=== PATIENT | female | born 1970 | race Two or more races ===

== ENCOUNTER 2020-01-11 17:01 | Emergency (ER) | payer OTHER ==
[~2020-01-11] VITALS: Ht 157.5 cm; Wt 56.7 kg
== END 2020-01-11 23:47 | disposition home or self-care (01) ==
LOC: ER 17:01
DX: N20.0 Calculus of kidney (principal)

== ENCOUNTER 2020-01-16 06:00 | Day surgery (SDC) | payer OTHER | END 2020-01-16 13:40 | disposition home or self-care (01) | LOC: CIR.AMB 06:00 | PROVIDERS: ATTEND Urology | DX: N20.1 Calculus of ureter (principal) ==

== ENCOUNTER 2020-01-28 12:55 | Emergency (ER) | payer OTHER ==
[~2020-01-28] VITALS: Ht 160 cm; Wt 56.7 kg
[2020-01-28] MEDS ORDERED: DUI500 PO (13:58)
[2020-01-28] MEDS ORDERED: KETO10TA2 PO (13:58)
[2020-01-28] MEDS ORDERED: MUPIROCIN15 GM TOP (14:04)
== END 2020-01-28 14:14 | disposition home or self-care (01) ==
LOC: ER 12:55
DX: Q52.4 Other congenital malformations of vagina (principal); R10.2 Pelvic and perineal pain

== ENCOUNTER 2020-04-30 08:20 | Outpatient (CLI) | payer OTHER ==
[~2020-04-30 08:20] MED LIST: DUI500 PO; KETO10TA2 PO; MUPIROCIN15 GM TOP
== END 2020-04-30 08:28 | disposition home or self-care (01) ==
LOC: SONOGRAMA 08:20 → MAMO-SONO 08:45
PROVIDERS: ATTEND Urology
DX: N20.0 Calculus of kidney (principal)

== ENCOUNTER 2020-04-30 10:00 | Outpatient (CLI) | payer OTHER | END 2020-04-30 10:09 | disposition home or self-care (01) | LOC: LAB 10:00 | PROVIDERS: ATTEND Urology | DX: N30.00 Acute cystitis without hematuria (principal) ==

== ENCOUNTER 2020-05-03 08:40 | Outpatient (CLI) | payer OTHER | END 2020-05-03 08:49 | disposition home or self-care (01) | LOC: LAB 08:40 | PROVIDERS: ATTEND Urology | DX: N20.1 Calculus of ureter (principal) ==